=== PATIENT | male | born 1985 | race Caucasian/White ===

== ENCOUNTER 2021-08-18 00:41 | Inpatient (IN) | payer MEDICAID ==
[~2021-08-18] VITALS: Ht 167.6 cm; Wt 78.6 kg
[2021-08-18] MEDS ORDERED: LORazepam 2 MG TABLET PO PRN (01:30)
[2021-08-18] MEDS ORDERED: 1: MAGNESIUM SULFATE 2 GM, MVI, ADULT NO.1 WITH VIT K 10 ML, THIAMINE 100 MG, FOLIC ACID IV SCH ×5 (01:30)
[2021-08-18] MEDS ORDERED: ONDANSETRON HCL 4 MG/2 ML VIAL IVP PRN (01:30)
[2021-08-18 01:36] LABS: INR 1.3 (0.9-1.1); PROTHROMBIN TIME 13.5 SEC (9.4-11.6)
[2021-08-18 01:38] LABS: BILIRUBIN,DIRECT 0.5 mg/dL (0.00-0.20); BILIRUBIN,TOTAL 1.7 mg/dL (0.1-1.0); TOTAL PROTEIN, SERUM 7.8 g/dL (6.4-8.2)
[2021-08-18 01:58] LABS: AMPHET/METH SCREEN,URINE NEGATIVE (NEGATIVE); BARBITURATE SCREEN, URINE NEGATIVE (NEGATIVE); BENZODIAZEPINES SCREEN,URINE POSITIVE (NEGATIVE); CANNABINOID SCREEN,URINE NEGATIVE (NEGATIVE); COCAINE SCREEN,URINE NEGATIVE (NEGATIVE); METHADONE SCREEN, URINE NEGATIVE (NEGATIVE); OPIATE SCREEN,URINE NEGATIVE (NEGATIVE)
[2021-08-18 02:00] LABS: PHENCYCLIDINE SCREEN,URINE NEGATIVE (NEGATIVE)
[2021-08-18] MEDS ORDERED: LORazepam 2 MG/ML VIAL IVP ONE (02:00)
[2021-08-18 02:11] LABS: APPEARANCE,URINE CLOUDY (CLEAR); BILIRUBIN,URINE NEGATIVE (NEGATIVE); GLUCOSE, URINE (UA) NEGATIVE (NEGATIVE); KETONES,URINE TRACE mg/dL (NEGATIVE); LEUKOCYTE ESTERASE ,URINE NEGATIVE (NEGATIVE); NITRATE,URINE NEGATIVE (NEGATIVE); OCCULT BLOOD,URINE NEGATIVE (NEGATIVE); PROTEIN,URINE NEGATIVE (NEGATIVE); UROBILINOGEN,URINE 0.2 mg/dL (<=1.0)
[2021-08-18 02:26] VITALS: BP 119/66
[2021-08-18] MEDS: METOPROLOL TARTRATE 25 MG TABLET PO SCH ×2 (03:07→08:31)
[2021-08-18 04:52] VITALS: BP 120/64
[2021-08-18 08:24] VITALS: BP 118/81
[2021-08-18 11:11] VITALS: BP 106/69
[2021-08-18] MEDS ORDERED: LACT30L PO (12:31)
[2021-08-19] MEDS ORDERED: LORazepam 2 MG TABLET PO PRN (07:00)
[2021-08-19] MEDS ORDERED: LORazepam 2 MG TABLET PO SCH (09:00)
[2021-08-21] MEDS ORDERED: LORazepam 1 MG TABLET PO PRN (07:00)
[2021-08-21] MEDS ORDERED: LORazepam 1 MG TABLET PO SCH (09:00)
[2021-08-22] MEDS ORDERED: LORazepam 1 MG TABLET PO PRN (07:00)
== END 2021-08-18 13:30 | disposition home or self-care (01) | DRG 279 ==
LOC: EMS 00:42 → 5S 00:45
PROVIDERS: ADMIT Internal Medicine; ATTEND Internal Medicine
DX: K72.90 Hepatic failure, unspecified without coma (principal); F10.131 Alcohol abuse with withdrawal delirium; D68.9 Coagulation defect, unspecified; K70.30 Alcoholic cirrhosis of liver without ascites; K70.10 Alcoholic hepatitis without ascites; F41.9 Anxiety disorder, unspecified; Y90.9 Presence of alcohol in blood, level not specified
CPT/HCPCS: 80076; 81003; 82140; 85610; 99285; J2060; J2405; J3411; J3475; J3490; J7030